=== PATIENT | female | born 1955 | race Caucasian/White ===

== ENCOUNTER 2021-09-02 11:46 | Inpatient (IN) | payer MEDICARE, OTHER ==
[2021-09-02] VITALS (9 sets, daily range): BP systolic 89–125; BP diastolic 52–85
[~2021-09-02] VITALS: Ht 154 cm; Wt 72.2 kg
[2021-09-02] MEDS ORDERED: MELATONIN 3 MG TABLET PO PRN (13:30)
[2021-09-02] MEDS ORDERED: ONDANSETRON 4 MG/2 ML (SDV) Z0FRAN IV PRN (13:30)
[2021-09-02] MEDS ORDERED: polyethylene glycoL POWDER 17 GM (MIRALAX) PACK PO PRN (13:30)
[2021-09-02] MEDS ORDERED: diphenhydrAMINE 25 MG TAB (BENADRYL) PO PRN (13:30)
[2021-09-02] MEDS ORDERED: ONDANSETRON 4 MG (ZOFRAN) ORAL DISSOLVE TAB PO PRN (13:30)
--- NOTE | 2021-09-02 14:20 | Consultation-Cardiology ---
HPI-Cardiology Cardiology Consultation: Date of Consultation 09/02/2021 Date of Admission 09/02/2021 Attending Physician Marbella Lea MD Admitting Physician Torsten Kraft DO Consulting Physician DAWOOD RIBEIRO JR, MD HPI: Time Seen by a Provider: 14:15 Chief Complaint: Reason for consultation: Chest pain, left bundle branch block and abnormal troponin level. I had the pleasure of seeing Shannon in the cardiac stepdown unit at [facility] [place] [facility] in [place], [place] this afternoon. She has no known history of coronary artery disease. She does have cardiac risk factors of hypertension, hyperlipidemia, and type 2 diabetes mellitus. 2 days ago she was starting to feel lightheaded. She has chronic intermittent palpitations which were no different that day. She denies any syncope or any other associated complaints. Yesterday she again felt lightheaded and checked her blood pressure. Her blood pressure was markedly elevated. She was also feeling weak and dizzy but again, denies any syncope. She felt as though her face was hot. She did not seek medical attention at that time. However, today she started having substernal chest tightness with radiation to her shoulders and back. Then she started gett ing sharp chest pains towards the left side of her sternum. She became concerned and went to the emergency room and [place] for further evaluation. She was found to have a left bundle branch block and elevated troponin levels and was transferred to our hospital for further evaluation. When I saw the patient, she denies any further chest pain, tightness or discomfort. She denies any dyspnea. She denies paroxysmal nocturnal dyspnea or orthopnea. She gets some occasional, mild bilateral ankle edema which is worse if she stands for long time. Because of the abnormal troponin level and left bundle branch block, a cardiology consultation was requested. Certain portions of this document may have been dictated utilizing voice recognition technology. Inherent to this technology, typographical and grammatical errors may exist. As much as I am diligent to identify and correct these mistakes, some errors may remain in the document. Review of Systems-Cardiology Review of Systems Other comments Review of 10 organ systems is as per the history of present illness, otherwise negative. ZRF-Corzjd-Viruzu Hx Patient Social History Smoking Status: Former Smoker Have you traveled recently?: No Alcohol Use?: No Past Medical History PMH As described under Assessment. Family Medical History Family Medical History: The patient does not know of any family history of premature coronary artery disease in first-degree relatives. Allergies and Home Medications Allergies Coded Allergies: No Allergy Information Available (Unverified , 09/02/21) Patient Home Medication List Home Medication List Reviewed: Yes Exam Vital Signs Vital Signs Date Time Temp Pulse Resp B/P (MAP) Pulse Ox O2 Delivery O2 Flow Rate FiO2 09/02/21 13:40 79 15 122/82 (95) 91 Room Air Physical Exam General: Alert. No acute distress. Well nourished and appears stated age. She is obese. Eye: Extraocular movements are intact. Conjunctivae are clear. There are no xanthelasma. HENT: Normocephalic. Atraumatic. Carotid pulsations 2/2 without bruits. Neck: Jugular venous pressure does not appear elevated. No thyromegaly appreciated. Respiratory: Lungs are clear to auscultation. Respirations are non-labored. Breath sounds are equal. Symmetrical chest wall expansion. Cardiovascular: Normal rate. Regular rhythm. No murmur. No gallop. Point of maximal impulse is not appear displaced. Good pulses equal in all extremities. No edema. Gastrointestinal: Soft. Normal bowel sounds. Skin: Skin turgor is normal. There is no pallor. Musculoskeletal: No kyphosis or scoliosis appreciated. Neurologic: Alert and oriented to person, place, time. Cranial nerves 3-12 appear grossly intact. The patient has good motor tone strength in the upper and lower extremities bilaterally. Psychiatric: Cooperative. Appropriate mood & affect. ECG Impression ECG Comment Sinus rhythm with left bundle branch block Diagnosis/Problems Diagnosis/Problems (1) Chest pain Assessment & Plan: Exact etiology unclear. It sounds as though she actually had 2 different types of chest pain this morning. She has no previously known history of coronary artery disease but does have several cardiac risk factors as outlined above. She is now pain-free. Her outside labs showed an elevated troponin level. Troponin level from here is pending. Her electrocardiogram from here shows a left bundle branch block. She believes she had an electrocardiogram 1 year ago but does not recall if she was ever told she had a left bundle branch block. She has been started on aspirin. I will obtain an echocardiogram. We will obtain serial troponin levels at our facility. If she has persistent troponin elevation, we may need to consider further evaluation with a cardiac catheterization. I will resume her statin medication and start her on low-dose beta-haily. (2) Troponin level elevated Assessment & Plan: The outside emergency room uses a high-sensitivity troponin assay which is about 1000 times higher than our assays. Nonetheless, her troponin level was elevated. Follow-up troponin level in our facility is pending. Since she is pain-free at this point time, I will await the results of the follow-up troponin levels before deciding whether or not she needs an urgent cardiac catheterization. (3) Left bundle branch block Assessment & Plan: Unclear whether or not this is a new finding in this patient. We will proceed as above. (4) Primary hypertension Assessment & Plan: She is presently normotensive. I will wait to see how she responds to metoprolol before restarting her low strength lisinopril. She was recently having some low blood pressures and her primary provider stopped her hydrochlorothiazide. (5) Mixed hyperlipidemia Assessment & Plan: I have ordered rosuvastatin which she was taking at home. I also ordered a lipid panel for tomorrow. (6) Type 2 diabetes mellitus with complication Assessment & Plan: This will be managed by the hospitalist. (7) Obesity Assessment & Plan: She needs to work on weight loss. DAWOOD RIBEIRO JR, MD Sep 02, 2021 14:19
[2021-09-02] MEDS ORDERED: CATHETER FLUSH 10 ML SYR IV PRN (15:45)
[2021-09-02] MEDS ORDERED: NS IV 1000 ML 1,000 ML IV ONE (15:45)
--- NOTE | 2021-09-02 16:11 | Pre-Op Note & Conscious Sedat ---
Pre-Operative Progress Note H&P Reviewed The H&P was reviewed, patient examined and no changes noted. Date H&P Reviewed: Sep 02, 2021 Time H&P Reviewed: 16:10 Pre-Op Diagnosis: Possible non-ST elevation myocardial infarction and cardiomyopathy Conscious Sedation Pre-Proced ASA Score 2 For ASA 3 and 4: Consider anesthesia and medical clearance. Also, for patients with a history of failed moderate sedation consider anesthesia. Airway Lungs Heart ASA score ASA 1: a normal healthy patient ASA 2: a patient with a mild systemic disease (mid diabetes, controlled hypertension, obesity ASA 3: a patient with a severe systemic disease that limits activity (angina, COPD, prior Myocardial infarction) ASA 4: a patient with an incapacitating disease that is a constant threat to life (CHF, renal failure) ASA 5: a moribund patient not expected to survive 24 hrs. (ruptured aneurysm) ASA 6: a declared brain- patient whose organs are being harvested. For emergent operations, add the letter E after the classification Mallampati Classification Grade 2 Sedation Plan Analgesia, Amnesia, Plan communicated to team members, Discussed options with patient/fam, Discussed risks with patient/fam The patient is an appropriate candidate to undergo the planned procedure, sedation, and anesthesia. The patient immediately re-assessed prior to indication. DAWOOD RIBEIRO JR, MD Sep 02, 2021 16:11
[2021-09-02] MEDS ORDERED: MIDAZOLAM 5 MG/5 ML (VERSED) VIAL ONE (16:18)
[2021-09-02] MEDS ORDERED: VERAPAMIL 5 MG/2 ML (CALAN) VIAL IV ONE (16:18)
[2021-09-02] MEDS ORDERED: fentaNYL INJ 100 MCG/2 ML AMP ONE (16:18)
[2021-09-02] MEDS ORDERED: NITRO DRIP 25000 MCG/D5W 250 ML IV ONE (16:19)
[2021-09-02] MEDS ORDERED: HEParin 1000 UNIT/ML (10ML VIAL) FOR BOLUS ONE (16:19)
[2021-09-02] MEDS ORDERED: LIDOCAINE 1% INJ 20 ML 20 ML VIAL ONE (16:20)
[2021-09-02] MEDS ORDERED: HEParin (CATH LAB) 2,000 ML IV ONE (16:20)
[2021-09-02] MEDS ORDERED: NS IV 1000 ML 1,000 ML ONE (16:46)
[2021-09-02] MEDS ORDERED: PATIENT MAY USE OWN MEDS, ALL PO SCH (17:45)
[2021-09-02] MEDS ORDERED: NS IV 1000 ML 1,000 ML IV SCH (17:45)
[2021-09-02] MEDS ORDERED: CITA10TA9 PO (19:28)
[2021-09-02] MEDS ORDERED: OMEP40CA6 PO (19:28)
[2021-09-02] MEDS ORDERED: ROSU10TA22 PO (19:28)
[2021-09-02] MEDS ORDERED: DICY20TA PO (19:28)
[2021-09-02] MEDS ORDERED: GABA-486 PO (19:28)
[2021-09-02] MEDS ORDERED: METF-398 PO (19:28)
--- NOTE | 2021-09-02 19:53 | History & Physical-Hospitalist ---
History of Present Illness HPI/Chief Complaint Shannon Quintanilla is a 66 year old female with PMH HTN, HLD, T2DM, who was transferred from [facility] with chest pain. She was having lightheadedness and dizziness. She reports substernal chest pain with radiation to her shoulders and back. She denies diaphoresis and nausea. Upon my exam, she is no longer having any pain. She denies shortness of breath. She denies lower extremity swelling. Source: patient Exam Limitations: no limitations Date Seen 09/02/21 Time Seen by a Provider: 18:15 Attending Physician Marbella Burns MD PCP Torsten Kraft DO Referring Physician Date of Admission Sep 02, 2021 at 13:11 Home Medications & Allergies Home Medications Reviewed patient Home Medication Reconciliation performed by pharmacy medication reconciliations ruling technician and/or nursing. Patients Allergies have been reviewed. Allergies Allergies Coded Allergies Sulfa (Sulfonamide Antibiotics) (Verified Allergy, Unknown, 09/02/21) codeine (Verified Allergy, Unknown, 09/02/21) Past Klgksdw-Ztvmtq-Rvosof Hx Patient Social History Tobacco Use?: No Smoking Status: Former Smoker Substance use?: No Alcohol Use?: No Current Status status: No status: No Advance Directives: No Communicates: Verbally Primary Language: Thai Preferred Spoken Language: Thai Is interpretation needed?: No Sensory deficits: Vision impairment Implanted or Applied Medical D: None Past Medical History High Cholesterol, Hypertension Diabetes, Non-Insulin dep Family Medical History No Pertinent Family Hx Review of Systems Constitutional: dizziness EENTM: no symptoms reported Respiratory: no symptoms reported Cardiovascular: chest pain Gastrointestinal: no symptoms reported Genitourinary: no symptoms reported Musculoskeletal: no symptoms reported Skin: no symptoms reported Psychiatric/Neurological: No Symptoms Reported Physical Exam Physical Exam Vital Signs Vital Signs - First Documented 09/02/21 09/02/21 09/02/21 09/02/21 13:00 13:40 14:00 14:30 Temp 37.1 Pulse 79 Resp 15 B/P (MAP) 122/82 (95) Pulse Ox 91 O2 Delivery Room Air O2 Flow Rate 2.00 Capillary Refill : Less Than 3 Seconds Height, Weight, BMI Height: '" Weight: lbs. oz. kg; 30.44 BMI Method: General Appearance: No Apparent Distress, Obese HEENT: PERRL/EOMI, Pharynx Normal Neck: Normal Inspection, Supple Respiratory: Lungs Clear, Normal Breath Sounds, No Respiratory Distress Cardiovascular: Regular Rate, Rhythm, No Edema, No Murmur, Normal Peripheral Pulses Gastrointestinal: Normal Bowel Sounds, Non Tender, Soft Extremity: Normal Inspection, Non Tender, No Pedal Edema Neurologic/Psychiatric: Alert, Oriented x3, No Motor/Sensory Deficits, Normal Mood/Affect Skin: Normal Color, Warm/Dry Results Results/Procedures Labs Patient resulted labs reviewed. Imaging: Reviewed Imaging Report Assessment/Plan Admission Diagnosis NSTEMI Admission Status: Inpatient Order (span 2 midnights) Reason for Inpatient Admission: Cardiology evaluation Assessment and Plan NSTEMI HFrEF HTN HLD T2DM Obesity Troponin significantly elevated EKG with left bundle branch block Cardiology consulted ASA given Lovenox Echo with reduced EF, diastolic dysfunction Metoprolol Rosuvastatin Sliding scale insulin Diagnosis/Problems Diagnosis/Problems (1) NSTEMI (non-ST elevation myocardial infarction) Status: Acute (2) Heart failure with reduced ejection fraction and diastolic dysfunction Status: Acute (3) Primary hypertension Status: Chronic (4) Mixed hyperlipidemia Status: Chronic (5) Type 2 diabetes mellitus with complication Status: Chronic (6) Obesity Status: Chronic MARBELLA BURNS MD Sep 02, 2021 19:53
[2021-09-02] MEDS: inSUlin ASPART (NovoLOG) 1 UNIT/0.01 ML (CHARGE PER UNIT) SC SCH (20:35)
[2021-09-02] MEDS: ROSUVASTATIN 10 MG (CRESTOR) TABLET PO SCH (21:15)
--- NOTE | 2021-09-02 21:22 | Cardiac Cath Report ---
CARDIAC CATHETERIZATION DATE OF PROCEDURE: 09/02/2021 INDICATION: Non-ST elevation myocardial infarction. HISTORY: The patient is a 66 year old female with no previously known history of coronary artery disease who presented to the hospital with chest pain that had started earlier in the day. Her initial troponin level was borderline elevated. As the day went on, the troponin levels became more elevated. I then had her undergo an urgent echocardiogram that showed moderate left ventricular systolic dysfunction. Therefore, she is now referred for further evaluation with a cardiac catheterization. PROCEDURES PERFORMED: 1. Left heart catheterization with hemodynamic measurements. 2. Diagnostic [place] coronary angiography. PROCEDURE DESCRIPTION: After informed consent and in the fasting state, left heart catheterization was performed through the right radial artery utilizing a 6 Mexican system by percutaneous approach. A 5 Mexican JR4 catheter was utilized to interrogate the right coronary artery. I was not able to engage the left coronary artery from the right radial artery with either a 5 Mexican JL 3.5 catheter or a 5 Mexican AL-1 catheter. However, at one point, the JL 3.5 catheter did prolapse into the left ventricle and this was utilized to record left ventricular measurements. I subsequently gained access to the right femoral artery utilizing a micropuncture technique. The micropuncture sheath was then exchanged for a 6 Mexican sheath. I was subsequently able to interrogate the left coronary artery with the 5 Mexican JL 3.5 catheter. All catheters were exchanged over a guidewire. Following the procedure, a vascular band was applied to the radial artery access site and the sheath was removed with good hemostasis. Following the procedure, a right femoral angiogram revealed the sheath to be entering just above the bifurcation. A Mynx closure device was deployed. RESULTS: HEMODYNAMICS: The aortic pressure was 85/56 mmHg. The left ventricular pressure was 85/3 mmHg with a left ventricular end-diastolic pressure of 21 mmHg. There was no significant pressure gradient upon pullback across aortic valve. CORONARY ANGIOGRAPHY: Left main coronary artery: Free of significant disease. Left anterior descending coronary artery: Free of significant disease at the distal vessel tapered rapidly before the apex. Left circumflex coronary artery: Free of significant disease. Right coronary artery: Dominant and mildly calcified with diffuse disease at no more than 30% stenotic. IMPRESSION: 1. Borderline low systemic blood pressure with elevated left ventricular end- diastolic pressure. 2. Mild single-vessel coronary artery disease involving the dominant right coronary artery as outlined above. 3. The patient has moderate left ventricular systolic dysfunction with an estimated ejection fraction of 35-45% by echocardiogram obtained earlier today. Certain portions of this document may have been dictated utilizing voice recognition technology. Inherent to this technology, typographical and grammatical errors may exist. As much as I am diligent to identify and correct these mistakes, some errors may remain in the document. DAWOOD RIBEIRO JR, MD Sep 02, 2021 21:21
[2021-09-03] VITALS (8 sets, daily range): BP systolic 98–137; BP diastolic 51–82
[2021-09-03 04:45] LABS: BASOPHILS # (AUTO) 0.1 10^3/uL (0.0-0.1); BASOPHILS % (AUTO) 1 % (0-10); EOSINOPHILS # (AUTO) 0.2 10^3/uL (0.0-0.3); EOSINOPHILS % (AUTO) 1 % (0-10); HEMATOCRIT 37 % (35-52); LYMPHOCYTES # (AUTO) 3.4 10^3/uL (1.0-4.0); LYMPHOCYTES % (AUTO) 29 % (12-44); MEAN CORPUSCULAR HEMOGLOBIN 28 pg (25-34); MEAN CORPUSCULAR HGB CONC 32 g/dL (32-36); MEAN CORPUSCULAR VOLUME 87 fL (80-99); MEAN PLATELET VOLUME 10.1 fL (9.0-12.2); MONOCYTES # (AUTO) 0.8 10^3/uL (0.0-1.0); MONOCYTES % (AUTO) 7 % (0-12); NEUTROPHILS # (AUTO) 7.4 10^3/uL (1.8-7.8); NEUTROPHILS % (AUTO) 62 % (42-75); PLATELET COUNT 216 10^3/uL (130-400); WHITE BLOOD COUNT 11.8 10^3/uL (4.3-11.0)
[2021-09-03 05:04] LABS: POTASSIUM 3.3 MMOL/L (3.6-5.0)
[2021-09-03 05:06] LABS: CALCIUM 8.3 MG/DL (8.5-10.1)
[2021-09-03 05:10] LABS: CREATININE SERUM 0.6 MG/DL (0.60-1.30)
[2021-09-03] MEDS: inSUlin ASPART (NovoLOG) 1 UNIT/0.01 ML (CHARGE PER UNIT) SC SCH ×4 (05:23→20:16)
[2021-09-03] MEDS: ASPIRIN 81 MG CHEW (CHILDREN'S ASA) PO SCH (08:12)
[2021-09-03] MEDS: ENOXAPARIN 40 MG/0.4 ML (LOVENOX) SYR SC SCH (08:13)
--- NOTE | 2021-09-03 10:00 | Diagnostic Imaging Report ---
INDICATION: Chest pain. TECHNIQUE: Two view chest 8:44 AM CORRELATION STUDY: None FINDINGS: The heart size, mediastinal configuration and pulmonary vasculature are within normal limits. Scattered pulmonary parenchymal opacities are present. Suspect for multifocal pneumonitis which may be superimposed on chronic changes of the lung parenchyma. Minimal blunting of the costophrenic angles could reflect pleural thickening versus less likely effusion. Accentuated thoracic kyphosis. Vascular calcification. Presumed cholecystectomy clips right upper quadrant. IMPRESSION: 1. Scattered bilateral pulmonary opacities favoring probable multilobe pneumonia which may be superimposed on chronic lung disease. Dictated by: Dictated on workstation # [id number]
[2021-09-03] MEDS ORDERED: PANTOPRAZOLE 40 MG (PROTONIX) TAB PO ONE ×2 (10:45→13:17)
[2021-09-03] MEDS ORDERED: NS 100 ML (IVPB) BAG IV ONE (11:00)
[2021-09-03] MEDS ORDERED: IOHEXOL 350 MG/ML 100 ML (OMNIPAQUE 350) VIAL IV ONE (11:00)
[2021-09-03] MEDS ORDERED: HOLD METFORMIN - RECEIVED CONTRAST 20 ML VIAL IV SCH (11:00)
[2021-09-03] MEDS ORDERED: CATHETER FLUSH 10 ML SYR IV PRN (11:00)
--- NOTE | 2021-09-03 11:13 | Cardiology Progress Note ---
Progress Note-Cardiology Events since last exam Date Seen by Provider: Sep 03, 2021 Time Seen by Provider: 11:12 Events since last exam I am following her due to elevated troponin level. She still has some sharp c hest pain but the chest tightness has resolved. She feels a little short of breath. She denies palpitations, syncope or ankle edema. She had seen Dr. Ba in the past from [facility] but has not seen him in a couple of years. Certain portions of this document may have been dictated utilizing voice recognition technology. Inherent to this technology, typographical and grammatical errors may exist. As much as I am diligent to identify and correct these mistakes, some errors may remain in the document. Vitals Last set of Vitals Signs Vital Signs 09/03/21 09/03/21 12:00 13:20 Temp 36.9 Pulse 85 Resp 20 B/P (MAP) 137/82 (100) Pulse Ox 95 O2 Delivery Nasal Cannula O2 Flow Rate 2.00 Labs Labs Laboratory Tests 09/03/21 04:20 Exam Vital Signs Vital Signs Date Time Temp Pulse Resp B/P (MAP) Pulse Ox O2 Delivery O2 Flow Rate FiO2 09/03/21 13:20 85 20 137/82 (100) 95 Nasal Cannula 2.00 09/03/21 12:00 36.9 Physical Exam General: Alert. No acute distress. Eye: No xanthelasma. HENT: Normocephalic. Neck: Jugular venous pressure does not appear elevated. Respiratory: Lungs are clear to auscultation but slightly decreased at the bases bilaterally. Respirations are non-labored. Breath sounds are equal. Symmetrical chest wall expansion. Cardiovascular: Normal rate. Regular rhythm. No murmur. No gallop. No edema. Gastrointestinal: Soft. Normal bowel sounds. Skin: Warm. Dry. Neurologic: Alert and oriented to person, place, time. Cranial nerves 3-11 grossly intact. Psychiatric: Cooperative. Appropriate mood & affect. Labs Laboratory Tests Test 09/02/21 14:28 09/02/21 19:34 09/02/21 20:34 09/03/21 04:20 Range/Units Troponin I 1.188 *H 1.085 *H <0.028 NG/ML Glucometer 91 70-110 MG/DL White Blood Count 11.8 H 4.3-11.0 10^3/uL Red Blood Count 4.27 3.80-5.11 10^6/uL Hemoglobin 12.0 11.5-16.0 g/dL Hematocrit 37 35-52 % Mean Corpuscular Volume 87 80-99 fL Mean Corpuscular Hemoglobin 28 25-34 pg Mean Corpuscular Hemoglobin Concent 32 32-36 g/dL Red Cell Distribution Width 13.6 10.0-14.5 % Platelet Count 216 130-400 10^3/uL Mean Platelet Volume 10.1 9.0-12.2 fL Immature Granulocyte % (Auto) 0 % Neutrophils (%) (Auto) 62 42-75 % Lymphocytes (%) (Auto) 29 12-44 % Monocytes (%) (Auto) 7 0-12 % Eosinophils (%) (Auto) 1 0-10 % Basophils (%) (Auto) 1 0-10 % Neutrophils # (Auto) 7.4 1.8-7.8 10^3/uL Lymphocytes # (Auto) 3.4 1.0-4.0 10^3/uL Monocytes # (Auto) 0.8 0.0-1.0 10^3/uL Eosinophils # (Auto) 0.2 0.0-0.3 10^3/uL Basophils # (Auto) 0.1 0.0-0.1 10^3/uL Immature Granulocyte # (Auto) 0.0 0.0-0.1 10^3/uL Sodium Level 139 135-145 MMOL/L Potassium Level 3.3 L 3.6-5.0 MMOL/L Chloride Level 105 98-107 MMOL/L Carbon Dioxide Level 21 21-32 MMOL/L Anion Gap 13 5-14 MMOL/L Blood Urea Nitrogen 5 L 7-18 MG/DL Creatinine 0.60 0.60-1.30 MG/DL Estimat Glomerular Filtration Rate 100 BUN/Creatinine Ratio 8 Glucose Level 114 H 70-105 MG/DL Calcium Level 8.3 L 8.5-10.1 MG/DL Triglycerides Level 214 H <150 MG/DL Cholesterol Level 128 < 200 MG/DL LDL Cholesterol Direct 69 1-129 MG/DL VLDL Cholesterol 43 H 5-40 MG/DL HDL Cholesterol 31 L 40-60 MG/DL Test 09/03/21 10:46 Range/Units Glucometer 141 H 70-110 MG/DL Diagnosis/Problems Diagnosis/Problems (1) Pulmonary infiltrate Assessment & Plan: I am concerned that the pulmonary infiltrates could be pulmonary edema. I have ordered a dose of intravenous Lasix and a follow-up chest x-ray in the morning. (2) Cardiomyopathy Assessment & Plan: Her echocardiogram showed moderate left ventricular systolic dysfunction and her cardiac catheterization did not show any obstructive coronary artery disease. She has probable nonischemic cardiomyopathy of unknown etiology. I will start low doses of guideline directed medical therapy. This will need to be followed after discharge. (3) Chest pain Assessment & Plan: Exact etiology unclear. As above, her cardiac catheterization did not show any obstructive coronary artery disease. Her chest pain may have been related to acute heart failure or a noncardiac etiology. (4) Troponin level elevated Assessment & Plan: She had a probable type II non-ST elevation myocardial infarction related to acute heart failure. We will proceed as above. (5) Left bundle branch block Assessment & Plan: Unclear whether or not this is a new finding in this patient. We will proceed as above. (6) Primary hypertension Status: Chronic Assessment & Plan: I sarted her on Metoprolol succinate due to the cardiomyopathy. I will start low dose lisinopril tomorrow. (7) Mixed hyperlipidemia Status: Chronic Assessment & Plan: Continue rosuvastatin. (8) Type 2 diabetes mellitus with complication Status: Chronic Assessment & Plan: This is being managed by the hospitalist. (9) Obesity Status: Chronic Assessment & Plan: She needs to work on weight loss. DAWOOD RIBEIRO JR, MD Sep 03, 2021 11:13
[2021-09-03] MEDS ORDERED: lisINopril 5 MG (PRINIVIL) TABLET PO ONE (11:15)
--- NOTE | 2021-09-03 12:29 | Diagnostic Imaging Report ---
PROCEDURE: CT angiography of the chest with contrast. TECHNIQUE: Multiple contiguous axial images were obtained through the chest after uneventful bolus administration of intravenous contrast. 3D reconstructed CTA MIP acquisitions were also performed. Auto Exposure Controls were utilized during the CT exam to meet ALARA standards for radiation dose reduction. INDICATION: Chest pain, shortness of breath. COMPARISON: There are no prior CTA chest examinations available for comparison. The plain film examination of the chest performed earlier today at 8:44 AM noted bilateral pulmonary opacities favoring multilobe pneumonia. On this exam, there are diffuse alveolar/interstitial pulmonary infiltrates bilaterally. This appearance does suggest pneumonia/atelectasis and the possibility of COVID 19 should be considered. There is only a trace amount of fluid in each lung base. The heart is mildly enlarged and there are coronary calcifications evident. The aorta is not abnormally dilated. There is no defect within the pulmonary arteries to indicate a pulmonary embolus. There is no mediastinal or hilar adenopathy. The thyroid gland is prominent and there is the suggestion of a 2.5 cm low density nodule in the right lobe. Ultrasound would be recommended for further evaluation when the patient's condition permits. There is no obvious breast mass. The sections through the upper abdomen failed to show any sign of an acute abnormality. However, there is hepatomegaly and the liver is of lower density than usually seen. This does suggest fatty metamorphosis. The gallbladder is also surgically absent. The bone windows show no sign of a fracture or of a destructive lesion. IMPRESSION: 1. There is bilateral pneumonia/atelectasis and a small amount of fluid in each lung base. 2. There is no acute cardiopulmonary abnormality noted otherwise. In particular, there is no sign of a pulmonary embolus. 3. There is cardiomegaly and coronary artery disease. 4. Ultrasound would be recommended for further evaluation of the low density nodule in the right lobe of the thyroid when the patient's condition permits. 5. There is hepatomegaly and fatty metamorphosis. Dictated by: Dictated on workstation # [id number]
[2021-09-03] MEDS ORDERED: lisINopril 5 MG (PRINIVIL) TABLET ONE (13:17)
[2021-09-03] MEDS: ACETAMINOPHEN 325 MG TABLET PO PRN ×2 (16:19→23:26)
--- NOTE | 2021-09-03 18:05 | Progress Note - Hospitalist ---
Subjective HPI/CC On Admission Date Seen by Provider: Sep 03, 2021 Time Seen by Provider: 10:35 Shannon Quintanilla is a 66 year old female with PMH HTN, HLD, T2DM, who was transferred from [facility] with chest pain. She was having lightheadedness and dizziness. She reports substernal chest pain with radiation to her shoulders and back. She denies diaphoresis and nausea. Upon my exam, she is no longer having any pain. She denies shortness of breath. She denies lower extremity swelling. Subjective/Events-last exam She is feeling a bit better. She is still having some sharp left sternal chest pain. She is still short of breath. She has been up and moving a bit. She denies fevers. Objective Exam Vital Signs Vital Signs Date Time Temp Pulse Resp B/P (MAP) Pulse Ox O2 Delivery O2 Flow Rate FiO2 09/03/21 16:00 36.3 90 20 134/72 (92) 92 Nasal Cannula 2.00 Capillary Refill : Less Than 3 Seconds General Appearance: No Apparent Distress, Obese Respiratory: No Respiratory Distress, Decreased Breath Sounds Cardiovascular: Regular Rate, Rhythm, No Edema, No Murmur Gastrointestinal: Normal Bowel Sounds, Non Tender, Soft Extremity: Normal Inspection, No Pedal Edema Neurologic/Psychiatric: Alert, Motor Weakness Skin: Normal Color, Warm/Dry Results/Procedures Lab Laboratory Tests 09/03/21 04:20 Patient resulted labs reviewed. Imaging: Reviewed Imaging Report Assessment/Plan Assessment and Plan Assess & Plan/Chief Complaint NSTEMI CAD Acute HFrEF with diastolic dysfunction Left bundle branch block Acute hypoxic respiratory failure Atelectasis HTN HLD T2DM Obesity Thyroid nodule Troponin significantly elevated EKG with left bundle branch block Cardiology following Echo with reduced EF, diastolic dysfunction Left heart cath with RCA 30% stenosis, no intervention indicated at this time Requiring supplemental oxygen CT Chest negative for PE, multifocal pneumonia vs atelectasis Procalcitonin normal, no fevers, normal WBC Begin Lasix Incentive spirometry Aspirin Metoprolol Rosuvastatin Sliding scale insulin Follow up outpatient for thyroid ultrasound Diagnosis/Problems Diagnosis/Problems (1) NSTEMI (non-ST elevation myocardial infarction) Status: Acute (2) Heart failure with reduced ejection fraction and diastolic dysfunction Status: Acute (3) Left bundle branch block (4) Acute respiratory failure with hypoxia Status: Acute (5) Primary hypertension Status: Chronic (6) Mixed hyperlipidemia Status: Chronic (7) Type 2 diabetes mellitus with complication Status: Chronic (8) Obesity Status: Chronic (9) Thyroid nodule greater than or equal to 1.5 cm in diameter incidentally noted on imaging study Status: Acute DANNI BURNS MD Sep 03, 2021 18:05
[2021-09-03] MEDS ORDERED: FUROSEMIDE 40 MG/4 ML INJ (LASIX) IVP ONE (18:15)
[2021-09-03] MEDS ORDERED: FUROSEMIDE 40 MG/4 ML INJ (LASIX) ONE (20:14)
[2021-09-03] MEDS: PANTOPRAZOLE 40 MG (PROTONIX) TAB PO SCH (20:16)
[2021-09-03] MEDS: ROSUVASTATIN 10 MG (CRESTOR) TABLET PO SCH (20:16)
[2021-09-04 03:47] VITALS: BP 67/42
[2021-09-04 04:32] VITALS: BP 95/57
[2021-09-04] MEDS: inSUlin ASPART (NovoLOG) 1 UNIT/0.01 ML (CHARGE PER UNIT) SC SCH ×2 (06:41→10:52)
[2021-09-04 07:57] LABS: CALCIUM 9.2 MG/DL (8.5-10.1); CREATININE SERUM 0.69 MG/DL (0.60-1.30); MAGNESIUM 1.6 MG/DL (1.6-2.4); POTASSIUM 3.4 MMOL/L (3.6-5.0)
[2021-09-04 08:00] VITALS: BP 104/64
[2021-09-04] MEDS: ASPIRIN 81 MG CHEW (CHILDREN'S ASA) PO SCH (08:31)
[2021-09-04] MEDS: ACETAMINOPHEN 325 MG TABLET PO PRN ×2 (08:32→12:39)
[2021-09-04] MEDS: PANTOPRAZOLE 40 MG (PROTONIX) TAB PO SCH (08:32)
[2021-09-04] MEDS ORDERED: FUROSEMIDE 40 MG/4 ML INJ (LASIX) IVP SCH (09:00)
[2021-09-04] MEDS ORDERED: lisINopril 5 MG (PRINIVIL) TABLET PO SCH (09:00)
--- NOTE | 2021-09-04 09:37 | Diagnostic Imaging Report ---
PA and lateral chest at 827 hours. INDICATION: Dyspnea. FINDINGS: The heart size is within normal limits and stable when compared to 09/03/2021. The previous study did suggest multifocal pneumonitis superimposed on the chronic lung changes. On this exam, there are still abnormal alveolar/interstitial infiltrates involving both lungs. The lungs may be slightly better aerated than on the prior study. There is still no sign of a pleural effusion. The mediastinum is not widened. The osseous structures are intact. IMPRESSION: The appearance of the chest has improved somewhat as the lungs do seem slightly better aerated. There is still residual pneumonia/atelectasis bilaterally. Dictated by: Dictated on workstation # [id number]
[2021-09-04] MEDS ORDERED: LACT1CAP62 PO (10:05)
[2021-09-04] MEDS ORDERED: ACET-2650 PO (10:05)
[2021-09-04] MEDS ORDERED: LISI10TA25 PO (10:05)
[2021-09-04] MEDS ORDERED: CHOL10004 PO (10:05)
--- NOTE | 2021-09-04 10:39 | Physical Therapy Evaluation ---
PT Evaluation-General Medical Diagnosis Admission Date Sep 02, 2021 at 13:11 Medical Diagnosis: NSTEMI Onset Date: Sep 02, 2021 Therapy Diagnosis Therapy Diagnosis: debility/weakness Precautions Precautions/Isolations: Standard Precautions Referral Physician: Sami Reason for Referral: Evaluation/Treatment Medical History Pertinent Medical History: DM, HTN Current History transfer from [facility] secondary to [place] Reviewed History: Yes Social History Home: Single Level Current Living Status: Children Prior Prior Level of Function SCALE: Activities may be completed with or without assistive devices. 4-Gxhvsxtnic-dpsswdy completes the activity by him/herself with no assistance from a helper. 5-Set-up or Clean-up Assistance-helper sets up or cleans up; patient completes activity. [place]ell assists only prior to or following the activity. 4-Supervision or Touching Assistance-helper provides verbal cues and/or touching/steadying and/or contact guard assistance as patient completes activity. Assistance may be provided throughout the activity or intermittently. 3-Partial/Moderate Assistance-helper does LESS THAN HALF the effort. Howell lifts, holds or supports trunk or limbs, but provides less than half the effort. 2-Substantial/Maximal Assistance-helper does MORE THAN HALF the effort. Howell lifts or holds trunk or limbs and provides more than half the effort. 3-Gkmaguqqw-wjbnub does ALL the effort. Patient does none of the effort to complete the activity. Or, the assistance of 2 or more helpers is required for the patient to complete the activity. If activity was not attempted, code reason: 7-Patient Refused. 9-Not Applicable-not attempted and the patient did not perform the activity before the current illness, exacerbation or injury. 10-Not Attempted due to Environmental Limitations-(lack of equipment, weather restraints, etc.). 88-Not Attempted due to Medical Conditions or Safety Concerns. Bed Mobility: 6 Transfers (B,C,W/C): 6 Gait: 6 Indoor Mobility (Ambulation): Independent Prior Devices Use: None PT Evaluation-Current Subjective Patient agrees to PT. Objective Patient Orientation: Normal For Age ROM/Strength ROM Lower Extremities bilateral LE WFL Strength Lower Extremities 3+/5 grossly bilateral LE Integumentary/Posture Bowel Incontinence: No Bladder Incontinence: No Posture kyphotic Neuromuscular (Tone, Coordination, Reflexes) grossly intact Sensory Vision: Functional Hearing: Functional Transfers Sit to Stand (QC): 4 Chair/Rnw-ip-Gzjrw Xfer(QC): 4 Gait Does the Patient Walk?: Yes Mode of Locomotion: Walk Anticipated Mode of Locomotion: Walk Walk 10 feet (QC): 4 Walk 50 ft with 2 Turns(QC): 4 Walk 150 ft (QC): 4 Distance: 200' Gait Assistive Device: FWW Comments/Gait Description SBA for safety on initial evaluation Balance Sitting Static: Normal Sitting Dynamic: Normal Standing Static: Normal Standing Dynamic: Normal Assessment/Needs 66 y.o. female, will be seen short term by skilled PT to address functional strength and mobility to improve current LOF to safely return to home at maximum LOF. Rehab Potential: Fair PT Skilled Nursing Goals Skilled Nursing Goals PT Paraprofessional Interpreter Goals Time Frame: Sep 16, 2021 Roll Left & Right (QC): 6 Sit to Lying (QC): 6 Lying-Sitting on Side/Bed(QC): 6 Sit to Stand (QC): 6 Chair/Biu-ij-Aefyn Xfer(QC): 6 Toilet Transfer (QC): 6 Walk 10 feet (QC): 6 Walk 50ft with 2 Turns (QC): 6 Walk 150 ft (QC): 6 PT Plan Problem List Problem List: Activity Tolerance, Functional Strength, Safety, Balance, Gait, Transfer, Bed Mobility Treatment/Plan Treatment Plan: Continue Plan of Care Treatment Plan: Bed Mobility, Education, Functional Activity Tami, Functional Strength, Gait, Safety, Therapeutic Exercise, Transfers Treatment Duration: Sep 16, 2021 Frequency: 6 times per week Estimated Hrs Per Day: .25 hour per day Patient and/or Family Agrees t: Yes Time/GCodes Time In: 800 Time Out: 814 Total Billed Treatment Time: 14 Total [facility] IS[facility]ORO QUIGLEY PT Sep 04, 2021 10:39
[2021-09-04] MEDS: ENOXAPARIN 40 MG/0.4 ML (LOVENOX) SYR SC SCH (10:52)
[2021-09-04] MEDS ORDERED: ASPI81TA64 PO (11:17)
[2021-09-04] MEDS ORDERED: MTP25TSR PO (11:17)
[2021-09-04] MEDS ORDERED: LISI5TAB20 PO (11:17)
--- NOTE | 2021-09-04 11:17 | Cardiology Progress Note ---
Progress Note-Cardiology Events since last exam Date Seen by Provider: Sep 04, 2021 Time Seen by Provider: 11:16 Events since last exam I am following her due to chest pain. She still has intermittent sharp chest pain. She feels as though her breathing is better but not quite back to normal. She denies palpitations, syncope, or ankle edema. Certain portions of this document may have been dictated utilizing voice recognition technology. Inherent to this technology, typographical and grammatical errors may exist. As much as I am diligent to identify and correct these mistakes, some errors may remain in the document. Vitals Last set of Vitals Signs Vital Signs 09/04/21 09/04/21 11:34 13:00 Temp 36.5 Pulse 82 Resp 24 B/P (MAP) 89/48 (62) Pulse Ox 96 O2 Delivery Nasal Cannula O2 Flow Rate 2.00 Labs Labs Laboratory Tests 09/04/21 07:30 Exam Vital Signs Vital Signs Date Time Temp Pulse Resp B/P (MAP) Pulse Ox O2 Delivery O2 Flow Rate FiO2 09/04/21 13:00 82 09/04/21 11:34 36.5 24 89/48 (62) 96 Nasal Cannula 2.00 Physical Exam General: Alert. No acute distress. Eye: No xanthelasma. HENT: Normocephalic. Neck: Jugular venous pressure does not appear elevated. Respiratory: Lungs are clear to auscultation. Respirations are non-labored. Breath sounds are equal. Symmetrical chest wall expansion. Cardiovascular: Normal rate. Regular rhythm. 2/6 systolic ejection murmur. No gallop. No edema. Gastrointestinal: Soft. Normal bowel sounds. Skin: Warm. Dry. Neurologic: Alert and oriented to person, place, time. Cranial nerves 3-11 grossly intact. Psychiatric: Cooperative. Appropriate mood & affect. Labs Laboratory Tests Test 09/03/21 16:23 09/03/21 19:19 09/04/21 06:05 09/04/21 07:30 Range/Units Glucometer 133 H 188 H 146 H 70-110 MG/DL Sodium Level 139 135-145 MMOL/L Potassium Level 3.4 L 3.6-5.0 MMOL/L Chloride Level 101 98-107 MMOL/L Carbon Dioxide Level 28 21-32 MMOL/L Anion Gap 10 5-14 MMOL/L Blood Urea Nitrogen 6 L 7-18 MG/DL Creatinine 0.69 0.60-1.30 MG/DL Estimat Glomerular Filtration Rate 85 BUN/Creatinine Ratio 9 Glucose Level 138 H 70-105 MG/DL Calcium Level 9.2 8.5-10.1 MG/DL Magnesium Level 1.6 1.6-2.4 MG/DL Procalcitonin 0.09 <0.10 NG/ML Test 09/04/21 10:41 Range/Units Glucometer 244 H 70-110 MG/DL Diagnosis/Problems Diagnosis/Problems (1) Acute HFrEF (heart failure with reduced ejection fraction) Assessment & Plan: Her chest x-ray from 09/03 showed possible pulmonary edema. I gave her a dose of intravenous Lasix on 09/03. Her chest x-ray from today is improved. It is possible that she had a mild degree of acute systolic heart failure. This would also be a plausible explanation for the mildly elevated troponin level. Since she does feel better, from a cardiac standpoint, she could be discharged home. (2) Cardiomyopathy Assessment & Plan: Her echocardiogram showed moderate left ventricular systolic dysfunction and her cardiac catheterization did not show any obstructive coronary artery disease. She has probable nonischemic cardiomyopathy of unknown etiology. I will start low doses of guideline directed medical therapy. This will need to be followed by her regular smutter at [facility] after discharge. (3) Chest pain Assessment & Plan: Exact etiology unclear. As above, her cardiac catheterization did not show any obstructive coronary artery disease. Her chest pain may have been related to acute heart failure or a noncardiac etiology. (4) Troponin level elevated Assessment & Plan: She had a probable type II non-ST elevation myocardial infarction related to acute heart failure. (5) Left bundle branch block Assessment & Plan: Unclear whether or not this is a new finding in this patient. (6) Primary hypertension Status: Chronic Assessment & Plan: I started her on metoprolol succinate and lisinopril for the cardiomyopathy. This should also help with her hypertension. (7) Mixed hyperlipidemia Status: Chronic Assessment & Plan: Continue rosuvastatin. (8) Type 2 diabetes mellitus with complication Status: Chronic Assessment & Plan: This is being managed by the hospitalist. (9) Obesity Status: Chronic Assessment & Plan: She needs to work on weight loss. DAWOOD RIBEIRO JR, MD Sep 04, 2021 11:17
--- NOTE | 2021-09-04 11:21 | D/C HH Face to Face Order ---
D/C Face to Face Orders Reconcile Patient Problems Problems Reviewed?: Yes Instructions for Patient Via [employer], Patient Instructions/FollowUp: Take medications as prescribed. Follow up with your PCP and Cardiology. Return with worsening chest pain, shortness of breath, or if you feel like you are getting worse. Physician to follow Patient: Swapnil Discharge Diet for Home: Low Sodium Diet Patient Data-Allergies,Ht & Wt Patient Allergies: Coded Allergies: Sulfa (Sulfonamide Antibiotics) (Verified Allergy, Unknown, 09/02/21) codeine (Verified Allergy, Unknown, 09/02/21) Home Health Need/Face to Face Date of Face to Face: Sep 04, 2021 Clinical Findings: Generalized weakness and fatigue, Instability, Muscle weakness, Unsteady gait I have seen Pt [id number]: Yes Discharged To: Home Diagnosis/Conditions: CAD HFrEF LBBB HTN HLD T2DM Obesity Problems/Diagnosis/Condition: (1) NSTEMI (non-ST elevation myocardial infarction) (2) Heart failure with reduced ejection fraction and diastolic dysfunction (3) Left bundle branch block (4) Primary hypertension (5) Mixed hyperlipidemia (6) Type 2 diabetes mellitus with complication (7) Obesity Patient is Homebound due to: Yunier fall risk due to instabilty, Muscle weakness, Shortness of breath/distress Homebound Status Due to the above stated illness, injury or surgical procedure (medical condition or diagnosis) and associated clinical findings, the patient is homebound because of his/her inability to leave home except with aid of a supportive device and/or person AND leaving the home requires a considerable and taxing effort or is medically contraindicated. Pt req the following assistanc: Aid of another person Home Health Nursing Orders Home Health Services Order: Nursing Services, Bed Machine Operator-Evaluate & Treat, Physical Therapy-Evaluate & Treat Therapy Orders Therapy Orders: OT (must have SN or PT order), Physical Therapy Therapy Specific Orders: Eval assistive deivces, Teach enviro modifications/safety, Gait training, Increase strength/endurance Certify Stmt I certify that this patient is under my care and that I, a nurse practitioner or a physician; a sugar laboratory assistant working with me, had a face to face encounter that - meets the physician face to face encounter requirements with this patient as dated. DANNI BURNS MD Sep 04, 2021 11:21
[2021-09-04 11:34] VITALS: BP 89/48
--- NOTE | 2021-09-04 14:41 | Occupational Therapy Eval ---
OT Evaluation-General/PLF Medical Diagnosis Admission Date Sep 02, 2021 at 13:11 Medical Diagnosis: NSTEMI Onset Date: Sep 02, 2021 Therapy Diagnosis Therapy Diagnosis: n/a Precautions Precautions/Isolations: Standard Precautions Referral Physician: Leonora Barr Reason: Evaluation/Treatment Medical History Pertinent Medical History: DM, HTN Additional Medical History HTN, HLD, DM Current History transfer from [facility] with chest pain Social History Home: Single Level Current Living Status: Children ADL-Prior Level of Function SCALE: Activities may be completed with or without assistive devices. 0-Cmfalasayv-eqdftbw completes the activity by him/herself with no assistance from a helper. 5-Set-up or Clean-up Assistance-helper sets up or cleans up; patient completes activity. [place] assists only prior to or following the activity. 4-Supervision or Touching Assistance-helper provides verbal cues and/or touching/steadying and/or contact guard assistance as patient completes activity. Assistance may be provided throughout the activity or intermittently. 3-Partial/Moderate Assistance-helper does LESS THAN HALF the effort. Lincoln lifts, holds or supports trunk or limbs, but provides less than half the effort. 2-Substantial/Maximal Assistance-helper does MORE THAN HALF the effort. Lincoln lifts or holds trunk or limbs and provides more than half the effort. 5-Bbizxpczq-admuue does ALL the effort. Patient does none of the effort to complete the activity. Or, the assistance of 2 or more helpers is required for the patient to complete the activity. If activity was not attempted, code reason: 7-Patient Refused. 9-Not Applicable-not attempted and the patient did not perform the activity before the current illness, exacerbation or injury. 10-Not Attempted due to Environmental Limitations-(lack of equipment, weather restraints, etc.). 88-Not Attempted due to Medical Conditions or Safety Concerns. ADL PLOF Comments Pt reports IND with ADLs and functional mobility at PLOF, no AD Self Care: Independent Functional Cognition: Independent OT Current Status Subjective Pt laying in bed, agreeable to OT tx. Mental Status/Objective Patient Orientation: Person, Place, Time, Situation Attachments: Oxygen, Telemetry Current Upper Extremity ROM WFL during ADL session Upper Extremity Coordination WFL Upper Extremity Sensation WFL ADL-Treatment Eating (QC): 6 (Per pt report) Oral Hygiene (QC): 6 (IND standing at sink.) Toileting Hygiene (QC): 6 (IND with hygiene and clothing managment) Other Treatments Pt laying in bed, transferred supine to sit EOB independently. Pt used FWW to transfer into bathroom and onto toilet, SBA only provided due to O2 and telemetry lines. Pt completed toileting, then stood at sink to wash her hands and brush her teeth independently. Pt transferred to recliner. Post tx, pt in recliner, call light in reach and all needs met. Education OT Patient Education: Correct positioning, Energy conservation, Modified ADL techniques, Progress toward Goal/Update tx plan, Purpose of tx/functional activities, Rehab process Teaching Recipient: Patient Teaching Methods: Discussion Response to Teaching: Verbalize Understanding OT Senior Living Goals Used Car Lot Attendant Goals 1=Demonstrate adherence to instructed precautions during ADL tasks. 2=Patient will verbalize/demonstrate understanding of assistive devices/modifications for ADL. 3=Patient will improve strength/tolerance for activity to enable patient to perform ADL's. OT Education/Plan Problem List/Assessment Assessment: No Skilled OT Needs ID'd No skilled OT services indicated at this time as pt is at PLOF and independent with all ADLs. Discharge Recommendations Plan/Recommendations: Discharge/Goals Met Treatment Plan/Plan of Care Patient would benefit from OT for education, treatment and training to promote independence in ADL's, mobility, safety and/or upper extremity function for ADL's. Plan of Care: ADL Retraining, Functional Mobility, UE Funct Exercise/Act Treatment Duration: Sep 04, 2021 Frequency: 1 time per week (eval only) Estimated Hrs Per Day: .25 hour per day Rehab Potential: Good Time/GCodes Start Time: 14:15 Stop Time: 14:30 Total Time Billed (hr/min): 15 Billed Treatment Time 1, ELLY RAHMAN OT Sep 04, 2021 14:40
== END 2021-09-04 15:41 | disposition home health service (06) | DRG 280 ==
LOC: EDBD → CSD 13:11
PROVIDERS: ADMIT Internal Medicine; ATTEND Internal Medicine
PROC: 4A023N7 Measurement of Cardiac Sampling and Pressure, Left Heart, Percutaneous Approach (ICD-10-PCS; principal; 2021-09-02)
PROC: B2111ZZ Fluoroscopy of Multiple Coronary Arteries using Low Osmolar Contrast (ICD-10-PCS; 2021-09-02)
DX: I11.0 Hypertensive heart disease with heart failure (principal); I50.21 Acute systolic (congestive) heart failure; I21.A1 Myocardial infarction type 2; J96.01 Acute respiratory failure with hypoxia; J98.11 Atelectasis; I42.9 Cardiomyopathy, unspecified; E11.9 Type 2 diabetes mellitus without complications; Z88.2 Allergy status to sulfonamides; Z88.5 Allergy status to narcotic agent; Z87.891 Personal history of nicotine dependence; E78.00 Pure hypercholesterolemia, unspecified; E66.9 Obesity, unspecified; E78.2 Mixed hyperlipidemia; I25.10 Atherosclerotic heart disease of native coronary artery without angina pectoris; I44.7 Left bundle-branch block, unspecified; E04.1 Nontoxic single thyroid nodule; Z68.30 Body mass index [BMI] 30.0-30.9, adult; R07.9 Chest pain, unspecified
CPT/HCPCS: 36415; 71046; 71275; 80048; 80061; 82947; 83036; 83735; 83880; 84145; 84484; 85025; 85027; 93005; 93306; 93458; 94760; 94761